=== PATIENT | female | born 1950 | race Two or more races ===

== ENCOUNTER 2016-12-02 17:17 | Emergency (ER) | payer SELFPAY ==
[~2016-12-02] VITALS: Ht 165.1 cm; Wt 86.6 kg
[2016-12-02 17:26] VITALS: BP 156/80
== END 2016-12-02 18:52 | disposition home or self-care (01) ==
LOC: ED 17:17
DX: K12.0 Recurrent oral aphthae (principal)

== ENCOUNTER 2017-06-19 14:56 | Emergency (ER) | payer MEDICAID ==
[2017-06-19 16:20] LABS: BASOPHIL % 0.3 % (0-2); PLATELET COUNT 181 x10^3mcL (130-400)
[2017-06-19 16:22] LABS: RED CELL DISTRIBUTION WIDTH 14.8 % (11.5-14.5)
[2017-06-19 16:38] LABS: CALCIUM 8.8 mg/dL (8.5-10.1); CARBON DIOXIDE 31.2 mmol/L (21-32)
[2017-06-19 16:43] LABS: ALBUMIN 3.3 g/dL (3.4-5.0); BILIRUBIN TOTAL 0.3 mg/dL (0.20-1.00); TOTAL PROTEIN, SERUM 7.3 g/dL (6.4-8.2)
[2017-06-19 18:48] VITALS: BP 140/70
== END 2017-06-19 18:00 | disposition home or self-care (01) ==
LOC: ED 14:56
PROVIDERS: Emergency Medicine
DX: K43.9 Ventral hernia without obstruction or gangrene (principal)
CPT/HCPCS: 36415; J1170; Q0162

== ENCOUNTER 2017-12-27 16:02 | Emergency (ER) | payer OTHER ==
[~2017-12-27] VITALS: Ht 160 cm; Wt 85.3 kg
[2017-12-27 16:10] VITALS: Ht 160 cm; Wt 85.3 kg
[2017-12-27 17:24] LABS: BASOPHIL % 0.3 % (0-2); PLATELET COUNT 239 x10^3mcL (130-400)
[2017-12-27 17:33] LABS: CALCIUM 9.3 mg/dL (8.5-10.1); CARBON DIOXIDE 31.2 mmol/L (21-32); CHLORIDE SERUM 104 mmol/L (98-107); CREATININE SERUM 0.9 mg/dL (0.6-1.0); GFR1 > 60 mL/min; GLUCOSE SERUM 96 mg/dL (74-106); POTASSIUM SERUM 3.7 mmol/L (3.5-5.1); SODIUM SERUM 141 mmol/L (136-145)
[2017-12-27 17:38] LABS: ALBUMIN 3.6 g/dL (3.4-5.0); ALKALINE PHOSPHATASE 130 U/L (46-116); ALT/SGPT 35 U/L (14-59); AST/SGOT 21 U/L (15-37); BILIRUBIN TOTAL 0.3 mg/dL (0.20-1.00); TOTAL PROTEIN, SERUM 7.9 g/dL (6.4-8.2)
[2017-12-27 17:42] LABS: RED CELL DISTRIBUTION WIDTH 15.1 % (11.5-14.5)
[2017-12-27 19:12] VITALS: BP 140/92
== END 2017-12-27 19:12 | disposition home or self-care (01) ==
LOC: ED 16:02
PROVIDERS: Emergency Medicine
DX: K62.5 Hemorrhage of anus and rectum (principal); R11.2 Nausea with vomiting, unspecified; R55 Syncope and collapse; R53.1 Weakness; R42 Dizziness and giddiness
CPT/HCPCS: J2270; J2405; J7030; Q0092